=== PATIENT | male | born 1980 | race Caucasian/White ===

== ENCOUNTER 2019-09-25 20:35 | Emergency (ER) | payer MEDICARE, SELFPAY ==
[2019-09-25 20:37] VITALS: BP 139/82; PULSE 74; RESP 16; TEMP 37.4; O2SAT 97
--- NOTE | 2019-09-25 20:45 | ED.GENADUL_ITS ---
Discharge Plan Disposition Patient Disposition: HOME Condition: Good Discharge Details Chief Complaint: DentalOral Clinical Impression: Dental infection Primary Care Provider: Jose Carlos Chaparro ED Provider: Kesha Simms Home Meds and New Rx's Prescriptions: New penicillin V potassium 500 mg tablet 500 mg PO QID 7 Days Qty: 28 RF: 0 Discharge Instructions Instructions: Penicillin V (By mouth), Dental Abscess (ED) Additional Instructions: Encourage hydration. Tylenol and/or ibuprofen as needed for discomfort. Please take penicillin as prescribed. Even if symptoms improve, please take the entire course. Attached is a little list of local dentists. Please call tomorrow to schedule follow-up as soon as possible. If you develop fever/chills, increased pain, increased swelling or other new/worsening symptoms please seek care urgently once again. Otherwise, please follow-up with dentist for definitive care. Referrals: Jose Carlos Chaparro [Primary Care Provider] - Medical Decision Making Patient is a 38-year-old male presenting today with chief complaint of right upper dental pain. He reports that he has tooth area. States that he has seen a dentist about this historically and is aware that he needs to have multiple teeth pulled. Associates this with previous drug use. States that he is caring for them better now. Does have a dentist. Has not been able to afford to have the teeth extracted that are needed. He states that over the past few days the pain has been increasing and today he noted some swelling on the right cheek. Denies any fevers or chills. No nausea or vomiting. No headache. No evidence of systemic illness. On exam, patient is resting comfortably. Vital signs are within normal limits. He appears well-hydrated. He does have poor dentition. At the #4 acute throat patient has a darkened broken tooth along the buccal side has soft tissue swelling, erythema. No fluctuance. Does have some visible swelling on the right cheek again, no evidence of abscess to be drained. Patient will be treated with penicillin VK. We discussed new/worsening symptoms when to seek care urgently once again. All of his questions and concerns were addressed and he is in agreement this plan. He will call dentist on Friday to schedule follow-up to schedule plan for definitive care. HPI General Mode of arrival: ambulatory . Date/Time Provider Initiated Documentation: 09/25/19 20:36 . Limitations to Documentation: no limitations . Information obtained by: patient, family and RN notes reviewed . History of Present Illness 38 year old M presents to the emergency department with the chief complaint of Right upper dental pain, described as moderate, with intensity rated at 5. Quality is described as aching, and is localized to the mouth. Patient reports no radiation. Patient started experiencing this day(s) and it has been constant. No relieving factors improve symptom(s), No exacerbating factors reported . Patient notes denies fever/chills, headaches, loss of appetite, nausea/vomiting, rash and shortness of breath. Dario pablo did receive the following treatments prior to arrival, none Related Data Home Medications Medication Instructions Recorded Confirmed penicillin V potassium 500 mg PO QID 7 Days #28 tab 09/25/19 Previous Rx's Medication Instructions Recorded penicillin V potassium 500 mg PO QID 7 Days #28 tab 09/25/19 Allergies Allergy/AdvReac Type Severity Reaction Status Date / Time No Known Allergies Allergy Unverified 09/25/19 20:40 General Stated Complaint: DentalOral HALI: 4 Review of Systems Constitutional Constitutional: Reports as per HPI, Denies chills, Denies fatigue, Denies fever(s), Denies headache(s) and Denies poor appetite Eyes Eyes: Denies change in vision and Denies irritation ENT Ears, Nose, Mouth, and Throat: Reports as per HPI, Reports dental pain, Denies dysphagia, Denies dizziness, Denies dry mouth, Denies ear discharge, Denies otalgia, Reports facial pain, Denies headache(s), Denies hoarseness, Denies lip swelling, Denies nasal congestion, Denies odynophagia and Denies sore throat Cardiovascular Cardiovascular: Reports as per HPI and Denies chest pain Respiratory Respiratory: Reports as per HPI and Denies cough Gastrointestinal Gastrointestinal: Reports as per HPI, Denies dysphagia, Denies nausea, Denies odynophagia and Denies vomiting Integumentary/Breasts Skin/Breast: Reports as per HPI, Denies erythema, Denies rash and Denies skin pain Neurologic Neurologic: Reports as per HPI, Denies dizziness and Denies headache(s) Endocrine Endocrine: Denies fatigue Allergic/Immunologic Allergic/Immunologic: Denies lip swelling [facility] Social History Smoking/Tobacco Use Status: Former Tobacco Use Alcohol Intake: never Drug use: Rarely Substance use type: marijuana Do you feel safe at home: Yes Do you feel safe in your relationship?: Yes Exam Const General: cooperative, healthy appearing, comfortable, no acute distress, well developed and well groomed Nutritional Appearance: average body habitus and well nourished Orientation: alert and awake [facility] Head: normal to inspection, normocephalic and atraumatic Ears: hearing grossly normal bilaterally, external ears normal and TM's normal bilaterally General nose exam: external nose normal and nares normal Face and sinus: normal facial exam, sinuses nontender and face symmetric Mouth: oral mucosae normal, lip normal, tongue normal, oropharynx normal, moist mucous membranes, no muffled voice, no trismus and No restricted motion Teeth and gingiva: caries and poor dentition Teeth image: 1. Broken, dark nubbin with buccal sided swelling, erythema and pain. No pain along lingual side. No fluctuance, no evidence of drainable abscess. Throat: posterior oropharynx normal, tonsils normal and uvula midline Eyes General: appearance normal, both eyes and all related structures Neck Neck: normal visual inspection, full ROM, no lymphadenopathy, supple and no anterior neck swelling Resp Effort & Inspection: normal respiratory effort, able to speak in complete se ntences and no respiratory distress Skin General skin exam: no rashes or lesions noted Trauma: no lacerations or abrasions Neuro General: alert and awake Cognition: normal cognition Speech: speech normal Gait: normal gait Psych Appearance: grossly normal and well kempt Mental Status: mental status grossly normal Speech and Movement: speech and movement normal Course Vital Signs Vital signs: Vital Signs Temperature 37.4 C 09/25/19 20:37 Pulse 74 09/25/19 20:37 Respiratory Rate 16 09/25/19 20:37 Blood Pressure 139/82 09/25/19 20:37 Pulse Oximetry 97 09/25/19 20:37 Temperature 37.4 C 09/25/19 20:37 Temperature Source Skin 09/25/19 20:37 Pulse 74 09/25/19 20:37 Respiratory Rate 16 09/25/19 20:37 Respiratory Effort 09/25/19 20:41 Blood Pressure 139/82 09/25/19 20:37 Blood Pressure Position Sitting 09/25/19 20:37 Pulse Oximetry 97 11/02/19 20:37 Oxygen Delivery Method Room Air 09/25/19 20:37 Oxygen Flow Rate 0 09/25/19 20:37 Pain Level 5 09/25/19 20:37
[2019-09-25] MEDS: Penicillin V POTASSIUM 500 MG TAB 1000 MG PO (21:05)
== END 2019-09-25 21:10 | disposition home or self-care (01) ==
PROVIDERS: Emergency Provider Physician Assistant; PCP Internal Medicine Pulmonary Disease
DX: K04.7 Periapical abscess without sinus (principal)
CPT/HCPCS: 99283